=== PATIENT | male | born 1955 | race Caucasian/White ===

== ENCOUNTER 2023-09-15 14:45 | Outpatient (CLI) | payer OTHER, SELFPAY ==
[2023-09-15 18:47] LABS: Basophils Percent Auto 0.4 % (0.2-1.2); Eosinophils Absolute Auto 0.1 K/mm3 (0-0.3); Eosinophils Percent Auto 0.7 % (0-4.4); Hematocrit 50.3 % (42.0-52.0); Hemoglobin 16.2 g/dL (14.0-18.0); Immature Granulocyte Absolute 0.06 K/mm3 (0.00-0.031); Immature Granulocyte Percent A 0.6 % (0-0.5); Lymphocytes Absolute Auto 2.46 K/mm3 (0.9-3.2); Lymphocytes Percent Auto 25.1 % (18.3-44.2); Mean Corpuscular HGB Conc 32.2 g/dl (32-36); Mean Corpuscular Hemoglobin 30.9 pg (26-34); Mean Platelet Volume 9.9 fl (7.4-10.4); Monocytes Absolute Auto 0.9 K/mm3 (0.1-0.6); Monocytes Percent Auto 9.4 % (2.6-8.5); Neutrophils Absolute Auto 6.3 K/mm3 (1.3-6.7); Neutrophils Percent Auto 63.8 % (45.5-73.1); Platelet Count Result 339 k/mm3 (150-375); Red Blood Count 5.24 M/mm3 (4.6-6.20); Red Cell Distribution Width 12.1 % (11.5-14.5); White Blood Count 9.8 K/mm3 (4.5-10.0)
[2023-09-15 20:33] LABS: Alanine Aminotransferase 24 U/L (6-50); Albumin Level 4.7 g/dL (3.5-5.1); Alkaline Phosphatase 65 U/L (38-126); Anion Gap 9 mmol/L (8-16); Aspartate Amino Transferase 66 U/L (17-59); Bilirubin,Total 0.7 mg/dL (0.2-1.3); Blood Urea Nitrogen 19 mg/dL (9-20); Calcium 10.1 mg/dL (8.4-10.2); Carbon Dioxide 32 mmol/L (22-30); Chloride 97 mmol/L (98-107); Estimated Glomerular Filt Rate > 60; Glucose 107 mg/dL (65-110); Potassium 4.3 mmol/L (3.4-5.0); Sodium 138 mmol/L (137-145)
[2023-09-15 20:59] LABS: Prostate Specific Antigen 2.5 ng/mL (< OR = 4.0)
== END 2023-09-15 14:46 | disposition home or self-care (01) ==
LOC: ANHGOSHLAB 14:46
PROVIDERS: PCP Family Medicine; Visit Provider Family Medicine
DX: C80.1 Malignant (primary) neoplasm, unspecified (principal); F41.9 Anxiety disorder, unspecified; Z12.5 Encounter for screening for malignant neoplasm of prostate
CPT/HCPCS: 36415; 80053; 84153; 84443; 85025; G0103

== ENCOUNTER → 2023-09-20 10:14 | Outpatient (CLI) | payer OTHER, SELFPAY ==
--- NOTE | ~2023-09-20 | CT_ITS ---
CT of the Abdomen and Pelvis: Indication: Malignancy Technique: 2.5 mm axial scans were obtained through the abdomen and pelvis following intravenous adm inistration of 100 cc of Omnipaque 350. Dose reduction technique was used on this scan by utilizing a utomated exposure control and iterative reconstruction technique. The dose-length product (DLP) was 4 59.36 mGy-cm. COMPARISON: 09/28/2019 Findings: Scans through the lung bases are unremarkable. The liver, spleen, pancreas, adrenals and kidneys are within normal limits. Cholecystectomy clips are present. There are atherosclerotic calcifications of the aorta. No lymphadenopathy. No bowel obstruction or bowel wall thickening. There is no evidence to suggest acute appendicitis. Images through the pelvis were performed. Urinary bladder unremarkable. Prostate gland seminal vesicl es are unremarkable. Impression: No significant abnormalities seen. Reviewed, dictated and finalized at [facility]. LFURIZER TENDER Impression: No significant abnormalities seen.
== END ==
PROVIDERS: PCP Family Medicine; Visit Provider Family Medicine
DX: C80.1 Malignant (primary) neoplasm, unspecified (principal)
CPT/HCPCS: 74177; Q9967

== ENCOUNTER 2024-10-08 13:47 | Outpatient (CLI) | payer OTHER, SELFPAY ==
--- OUTSIDE RECORDS SUMMARY | 2024-10-08 14:35 | XMS_ITS | Referral Summary ---
Author Organization [facility] [employer] Address [address] [place] [address] Care Team Providers Care Adjunct History Instructor Name Role Phone Miguelina Gooden MD Primary Care Provider [phone] Source Comments [facility],non-owned Affiliates and Associated Physician Practices is amultiple site organization consisting of ambulatory clinics and hospital sitesin [place], [place], [place] and [place]. This disclosure is being madepursuant to the Care Everywhere program and may not contain all information available regarding this patient. Last updated 18.[facility] [employer] Allergies No known active allergies Medications * Be aware that medications may not be up to date on this document. Alwaysverify current medications with the patient. Medication Sig Dispensed Refills Start Date End Date Status hydroCHLOROthiazide (HYDRODIURIL) 25 MG tablet 90 tablet 3 08/22/2017 Active DULoxetine (CYMBALTA) 60 MG capsule Take 1 capsule by mouth once daily 09/14/2018 Active ticagrelor (BRILINTA) 90 MG tablet Take 90 mg by mouth 2 times daily 11/28/2018 Active simvastatin (ZOCOR) 20 MG tablet Take 20 mg by mouth at bedtime Active metoprolol tartrate IR (LOPRESSOR) 12.5 MG TABS tablet Take 12.5 mg by mouth 2 times daily Active isosorbide mononitrate CR 24hr (IMDUR) 60 MG tablet Take 60 mg by mouth once daily Active aspirin (ASPIRIN) 81 MG tablet Take 81 mg by mouth once daily Active Active Problems Problem Noted Date Diagnosed Date Atherosclerotic heart diseas e of [place] coronary artery without angina pectoris 11/10/2017 Overview (12/12/2017): Cath 11/03/2017: DEMETRICE to OM1 branch Plan to recath in 1 month to reeval LCX and RCA Major depressive disorder, single episode 2014 Old myocardial infarction 08/21/2015 Pure hypercholesterolemia 08/21/2015 Trigger thumb of right hand 07/06/2013 Pain of finger of right hand 05/31/2013 Essential (primary) hypertension 09/27/2012 Gastro-esophageal reflux disease without esophag itis 05/13/2009 Anxiety disorder 05/13/2009 Trigger finger of left thumb Immunizations Name Administration Dates Next Due DT (AGE 0-7) 08/20/1996 INFLUENZA VACCINE 07/21/2017 TDAP (7yrs+) 02/03/2016 Social History Tobacco Use Types Packs/Day Years Used Date Smoking Tobacco: Never Smokeless Tobacco: Never Tobacco Cessation:Counseling Given: No Alcohol Use Standard Drinks/Week Comments No 0 (1 standard drink = 0.6 oz pur e alcohol) Sex and Gender Information Value Date Recorded Sex Assigned at Not on file Gender Identity Not on file Sexual Orientation Not on file Last Filed Vital Signs Vital Sign Reading Time Taken Comments Blood Pressure 167/108 03/16/2019 10:04 AM CDT Pulse 80 03/16/2019 10:04 AM CDT Temperature 36.3 ??C (97.4 ??F) 03/16/2019 10:04 AM C DT Respiratory Rate 18 02/28/2019 12:50 PM CDT Oxygen Saturation 96% 03/16/2019 10:04 AM CDT Inhaled Oxygen Concentration - - Weight 83 kg (183 lb) 03/16/2019 10:04 AM CDT Height 162.6 cm (5' 4 ) 03/16/2019 10:04 AM CDT Body Mass Index 31.41 03/16/2019 10:04 AM CDT Plan of Treatment Not on file Procedures Procedure Name Priority Date/Time Associated Diagnosis Comments COMPREHENSIVE METABOLIC PANEL Routine 01/17/2016 11:30 AM CDT from Last 3 Months or Most Recently Relevant to Health Maintenance Results * COMPREHENSIVE METABOLIC PANEL (01/17/2016 11:30 AM CDT) Glucose 95 65 - 99 mg/dL [facility] ([facility]) Comment: ? Fasting reference interval BUN 19 7 - 25 mg/dL [facility] ([facility]) Creatinine 1.06 0.70 - 1.25 mg/dL [facility] ([facility]) Comment: For patients >49 years of age, the reference limit for Creatinine is approximately 13% higher for people identified as -[place] Citizen. eGFR non- 76 > OR = 60 mL/min/1 .73m2 [facility] ([facility]) eGFR 88 > OR = 60 mL/min/1 .73m2 [facility] ([facility]) BUN/Creatinine Ratio NOT APPLICABLE 6 - 22 (calc) [facility] ([facility]) Sodium 141 135 - 146 mmol/L [facility] ([facility]) Potassium 3.9 3.5 - 5.3 mmol/L [facility] ([facility]) Chloride 104 98 - 110 mmol/L [facility] ([facility]) CO2 27 19 - 30 mmol/L [facility] ([facility]) Calcium 9.3 8.6 - 10.3 mg/dL [facility] ([facility]) Protein Total 7.3 6.1 - 8.1 g/dL [facility] ([facility]) Albumin 4.2 3.6 - 5.1 g/dL [facility] ([facility]) Globulin 3.1 1.9 - 3.7 g/dL (calc) [facility] ([facility]) Albumin/Globulin Ratio 1.4 1.0 - 2.5 (calc) [facility] ([facility]) Bilirubin Total 0.3 0.2 - 1.2 mg/dL [facility] ([facility]) Alkaline Phosphatase 55 40 - 115 U/L [facility] ([facility]) AST 20 10 - 35 U/L [facility] ([facility]) ALT 27 9 - 46 U/L [facility] ([facility]) Comment: REPORT COMMENT: FASTING:YES Test Performed at: [facility] [address] [place], [place] ??[phone] BEA AGUIRRE DO,MPH 01/17/2016 11:3 0 AM CDT 01/17/2016 11:34 AM CDT Miguelina Gooden MD LAB - CHEMISTRY CINDI MALONE [facility] ([facility]) from Last 3 Months or Most Recently Relevant to Health Maintenance Advance Directives * Full Code (Latest Code Status on File) Date Activated Date Inactivated Comments 02/28/2019 8:10 AM 02/28/2019 4:20 PM Care Teams Adjunct History Instructor Relationship Specialty Start Date End Date Miguelina Gooden MD PCP - General 05/03/16
--- OUTSIDE RECORDS SUMMARY | 2024-10-08 14:35 | XMS_ITS | Patient Health Summary ---
Author Organization [facility] Address [address] [place] [address] Care Team Providers Care Title Lawyer Name Role Phone Miguelina Gooden MD Primary Care Provider [phone] [facility],non-owned Affiliates and Associated Physician Practices is amultiple site organization consisting of ambulatory clinics and hospital sitesin [place], [place], [place] and [place]. This disclosure is being madepursuant to the Care Everywhere program and may not contain all information available regarding this patient. Last updated 18.[facility] Allergies No known active allergies Medications * Be aware that medications may not be up to date on this document. Alwaysverify current medications with the patient. * hydroCHLOROthiazide (HYDRODIURIL) 25 MG tablet(Started 08/22/2017) 3 refills left * DULoxetine (CYMBALTA) 60 MG capsule(Started 09/14/2018) Take 1 capsule by mouth once daily * ticagrelor (BRILINTA) 90 MG tablet(Started 11/28/2018) Take 90 mg by mouth 2 times daily * simvastatin (ZOCOR) 20 MG tablet Take 20 mg by mouth at bedtime * metoprolol tartrate IR (LOPRESSOR) 12.5 MG TABS tablet Take 12.5 mg by mouth 2 times daily * isosorbide mononitrate CR 24hr (IMDUR) 60 MG tablet Take 60 mg by mouth once daily * aspirin (ASPIRIN) 81 MG tablet Take 81 mg by mouth once daily Active Problems Problem Noted Date Diagnosed Date Atherosclerotic heart diseas e of [place] coronary artery without angina pectoris 11/10/2017 Major depressive disorder, single episode 2014 Old myocardial infarction 08/21/2015 Pure hypercholesterolemia 08/21/2015 Trigger thumb of right hand 07/06/2013 Pain of finger of right hand 05/31/2013 Essential (primary) hypertension 09/27/2012 Gastro-esophageal reflux disease without esophag itis 05/13/2009 Anxiety disorder 05/13/2009 Trigger finger of left thumb Immunizations * DT (AGE 0-7)(Given 08/20/1996) * INFLUENZA VACCINE(Given 07/21/2017) * TDAP (7yrs+)(Given 02/03/2016) Social History Tobacco Use Types Packs/Day Years [...] Mass Index 31.41 03/16/2019 10:04 AM CDT Procedures * RELEASE TRIGGER FINGER (TENDON SHEATH)(Performed 02/28/2019) Performed for Snapping thumb syndrome of left hand * XR HAND LEFT 3VW OR MORE(Performed 01/22/2019) Performed for Trigger finger of left thumb * URINALYSIS W/MICROSCOPIC NO CULTURE(Performed 11/19/2016) * COMPREHENSIVE METABOLIC PANEL(Performed 01/17/2016) * LIPID PROFILE(Performed 01/17/2016) * LAB HISTORICAL RESULTS-ONBASE(Performed 07/02/2011) * LAB HISTORICAL RESULTS-ONBASE(Performed 07/02/2011) * CK BLOOD(Performed 06/30/2009) * BASIC METABOLIC PANEL (CALCIUM TOTAL)(Performed 07/08/2008) * LAB HISTORICAL RESULTS-ONBASE(Performed 07/05/2008) Results * XR HAND LEFT 3VW OR MORE (01/22/2019 1:03 PM CDT) Anatomical Region Laterality Modality Wrist / Hand Radiographic Kate ging 01/22/2019 1:18 PM CDT Impressions 01/22/2019 3:09 PM CDT IMPRESSION: No osseous or soft tissue abnormality is identified. Dictated by Segun Baca MD (radiology physician assistant). Dr. JOSUE Samayoa have personally reviewed and interpreted this examination/study. This report was electronically signed by JOSUE BELL ??on 01/22/2019 3:09 PM . Narrative 01/22/2019 3:09 PM CDT EXAMINATION: XR HAND LEFT 3VW OR MORE HISTORY: left thumb trigger finger COMPARISON: No prior study is available for comparison at the time of this dictation. FINDINGS: The osseous structures are intact and well aligned without acute fracture or dislocation. The joint spaces are preserved. Bone density and texture are normal. No soft tissue swelling is present. Procedure Note Josue Bell MD - 01/22/2019 EXAMINATION: XR HAND LEFT 3VW OR MORE HISTORY: left thumb trigger finger COMPARISON: No prior study is available for comparison at the time ofthis dictation. FINDINGS: The osseous structures are intact and well aligned without acutefracture or dislocation. The joint spaces are preserved. Bone density and texture are normal. No soft tissue swelling is present. IMPRESSION: No osseous or soft tissue abnormality is identified. Dictated by Segun Baca MD (radiology physician assistant). Dr. JOSUE Samayoa have personally reviewed and interpreted this examination/study. This report was electronically signed by JOSUE BELL on 01/22/2019 3:09 PM . Deborah Akins MD DIAGNOSTIC IMAGING O RDERABLES * (ABNORMAL) URINALYSIS W/MICROSCOPIC NO CULTURE (11/19/2016 1:06 PM MAILROOM MANAGER) Color UA YELLOW [facility]LLOW [facility]) Appearance CLEAR CLEAR [facility] ([facility]) Specific [place] UA 1.023 1.001 - 1.035 [facility] ([facility]) pH Urine 5.5 5.0 - 8.0 [facility] ([facility]) Glucose UA NEGATIVE NEGATIVE [facility] ([facility]) Bilirubin UA NEGATIVE NEGATIVE [facility] ([facility]) Ketone UA NEGATIVE NEGATIVE [facility] ([facility]) Blood UA 2+(A) NEGATIVE [facility] ([facility]) Protein UA NEGATIVE NEGATIVE [facility] ([facility]) Nitrite UA NEGATIVE NEGATIVE [facility] ([facility]) Leukocyte Esterase NEGATIVE NEGATIVE [facility] ([facility]) WBC Urine NONE SEEN < OR = 5 /HPF [facility] ([facility]) RBC Urine 3-10(A) < OR = 2 /HPF [facility] ([facility]) Squamous Epithelial Cells UA NONE SEEN < OR = 5 /HPF [facility] ([facility]) Bacteria UA NONE SEEN NONE SEEN /HPF [facility] ([facility]) Hyaline Casts UA NONE SEEN NONE SEEN /LPF [facility] ([facility]) Comment: REPORT COMMENT: FASTING:NO Test Performed at: [facility] [address] [place], [place] ??[phone] BEA AGUIRRE DO,MPH Urine specimen (specimen) URINE SPECIMEN OBTAINED BY CLEAN CATCH PROCEDURE / Unknown 11/19/2016 1:06 PM MAILROOM MANAGER 11/19/2016 1:06 PM MAILROOM MANAGER Miguelina Gooden MD LAB - URINALYSIS ORD ERABLES [facility] ([facility]) * COMPREHENSIVE METABOLIC PANEL (01/17/2016 11:30 AM CDT) Glucose 95 65 - 99 mg/dL [facility] ([facility]) Comment: ? Fasting reference interval BUN 19 7 - 25 mg/dL [facility] ([facility]) Creatinine 1.06 0.70 - 1.25 mg/dL [facility] ([facility]) Comment: For patients >49 years of age, the reference limit for Creatinine is approximately 13% higher for people identified as -[place]. eGFR non- 76 > OR = 60 mL/min/1 .73m2 [facility] ([facility]) eGFR 88 > OR = 60 mL/min/1 .73m2 [facility] ([facility]) BUN/Creatinine Ratio NOT APPLICABLE 6 - 22 (calc) [facility] ([facility]) Sodium 141 135 - 146 mmol/L [facility] ([facility]) Potassium 3.9 3.5 - 5.3 mmol/L [facility] ([facility]) Chloride 104 98 - 110 mmol/L [facility] ([facility]) CO2 27 19 - 30 mmol/L [facility] ([facility]) Calcium 9.3 8.6 - 10.3 mg/dL [facility] ([facility]) Protein Total 7.3 6.1 - 8.1 g/dL [facility] ([facility]) Albumin 4.2 3.6 - 5.1 g/dL [facility] ([facility]) Globulin 3.1 1.9 - 3.7 g/dL (calc) [facility] ([facility]) Albumin/Globulin Ratio 1.4 1.0 - 2.5 (calc) [facility] ([facility]) Bilirubin Total 0.3 0.2 - 1.2 mg/dL [facility] ([facility]) Alkaline Phosphatase 55 40 - 115 U/L [facility] ([facility]) AST 20 10 - 35 U/L [facility] ([facility]) ALT 27 9 - 46 U/L [facility] ([facility]) Comment: REPORT COMMENT: FASTING:YES Test Performed at: [facility] [place], [place] ??[phone] BEA AGUIRRE DO,MPH 01/17/2016 11:3 0 AM CDT 01/17/2016 11:34 AM CDT Miguelina Gooden MD LAB - CHEMISTRY CINDI MALONE [facility] ([facility]) * (ABNORMAL) LIPID PROFILE (01/17/2016 11:30 AM CDT) Cholesterol Total 149 125 - 200 mg/dL [facility] ([facility]) Comment: Test Performed at: [facility] [address] [place], [place] ??[phone] BEA AGUIRRE DO,MPH HDL 35(L) > OR = 40 mg/dL [facility] ([facility]) Triglycerides 118 <150 mg/dL [facility] ([facility]) LDL Calculated 90 <130 mg/dL (calc) [facility] ([facility]) Comment: Desirable range <100 mg/dL for patients with CHD or diabetes and <70 mg/dL for diabetic patients with known heart disease. Chol/HDL Ratio 4.3 < OR = 5.0 (calc) [facility] ([facility]) Non HDL Cholesterol 114 mg/dL (calc) [facility] ([facility]) Comment: Target for non-HDL cholesterol is 30 mg/dL higher than LDL cholesterol target. 01/17/2016 11:3 0 AM CDT 01/17/2016 11:34 AM CDT Miguelina Gooden MD LAB - CHEMISTRY CINDI MALONE Performing Organization Address [facility] de Phone Number [facility] ([facility]) * LAB HISTORICAL RESULTS-ONBASE (07/02/2011) Only the most recent of3 resultswithin the time period is included. 07/02/2011 Historical Provider LAB - CHEMISTRY O BENJAMIN Performing Organization Address [facility] Co de Phone Number [facility] * CK BLOOD (06/30/2009 4:07 PM CDT) CK Total 107 44 - 196 U/L [facility] ([facility]) Comment: Test Performed at: [facility] [address] ??[phone] BEA AGUIRRE DO,MPH Serum 06/30/2009 4:07 PM CDT 06/30/2009 4:09 PM CDT Narrative [facility] ([facility]) - 07/01/2009 5:00 AM CDT Preferred Lab:->[facility] Miguelina Gooden MD LAB - CHEMISTRY CINDI MALONE Performing Organization Address [facility] de Phone Number [facility] ([facility]) * BASIC METABOLIC PANEL (CALCIUM TOTAL) (07/08/2008) Pathologist [facility] Glucose POCT TNP mg/dL [facility] ([facility]) Comment: * ?? TEST NOT PERFORMED. ?* * ?? AN ELECTRONIC TEST REQUEST ?? * * ?? WAS TRANSMITTED TO [employer] ? * * ?? DIAGNOSTICS, BUT NO SPECIMEN * * ?? WAS RECEIVED. ?* REPORT COMMENT: Preferred Lab:->[facility] Test Performed at: [facility] [address] ??[phone] BEA ROWLAND MD Venous blood specimen (specimen) (Arm, Left) 07/08/2008 07/08/2008 3:04 PM CDT Narrative [facility] ([facility]) - 07/23/2008 1:00 PM MAILROOM MANAGER Preferred Lab:->[facility] Miguelina Gooden MD LAB - CHEMISTRY CINDI MALONE [facility] ([facility]) Care Teams Title Lawyer Relationship Specialty Start Date End Date Miguelina Gooden MD PCP - General 05/03/16
--- OUTSIDE RECORDS SUMMARY | 2024-10-08 14:35 | XMS_ITS | Encounter Summary ---
Author Organization [facility] Address [address] [place] [address] Care Team Providers Care Block Sorter Name Role Phone Miguelina Gooden MD Primary Care Provider [phone] Encounter Details Date Type Department Care Team (Late Contact [facility]) Description 01/30/2019 Telephone [facility] [address] [place] [address] Denys Smith MD [phone] [phone] Social History Tobacco Use Types Packs/Day Years Used Date Smoking Tobacco: Never Smokeless Tobacco: Never Alcohol Use Standard Drinks/Week Comments No 0 (1 standard drink = 0.6 oz pur e alcohol) Sex and Gender Information Value Date Recorded Sex Assigned at Not on file Gender Identity Not on file Sexual Orientation Not on file documented as of this encounter Miscellaneous Notes * Telephone Encounter - Dulce Bautista - 01/30/2019 10:38 AM CDT Per Maria Elena @ [employer] for cpt code 10180, call reference # [id number]. documented in this encounter Plan of Treatment Not on file documented as of this encounter Visit Diagnoses Not on filedocumented in this encounter Care Teams Block Sorter Relationship Specialty Start Date End Date Miguelina Gooden MD PCP - General 05/03/16 documented as of this encounter
--- OUTSIDE RECORDS SUMMARY | 2024-10-08 14:35 | XMS_ITS | Referral Summary ---
Author Organization [facility] [address] [facility] [address] Address [address] [place] [address] Care Team Providers Care Subway Guard Name Role Phone Gonzalo Werner MD Primary Care Provider [phone] Encounters Date Type Department Care Team Description 07/19/2024 1:30 PM DISTANCE LEARNING UNIT LEADER Office Visit [facility] Cardiology [address] [facility] [address] [place] [address] Soco Osorio NP Coronary artery disease involving [place] coronary artery of [place] heart without angina pectoris; Hyperlipidemia LDL goal <70; Lipid screening; Essential hypertension from Last 3 Months Allergies No known active allergies Medications aspirin 81 mg tablet take 1 tablet by oral route every day 0 0 12/17/2016 Active cholecalciferol (VITAMIN D3) 1,000 unit capsule take 1 by oral route every day 0 08/15/[address] (CYMBALTA) 60 mg capsule Take 1 capsule (60 mg total) by mouth daily 0 09/14/2018 Active hydroCHLOROthiaz zheng (MICROZIDE) 12.5 mg capsule Take 1 capsule (12.5 mg total) by mouth every morning 30 capsule 11 04/08/2020 Active omeprazole (PriLOSEC) 20 mg capsule 06/02/2021 Active tamsulosin (FLOMAX) 0.4 mg extended release capsule Take 1 capsule (0.4 mg total) by mouth daily 12/28/2023 Active nitroglycerin (NITROSTAT) 0.[address] 1 TABLET UNDER THE TONGUE EVERY 5 MINUTES NEEDED FOR CHEST PAIN. 25 tablet 11 02/08/2024 Active isosorbide mononitrate ER (IMDUR) 60 mg 24 hr tablet TAKE 1 TABLET BY MOUTH EVERY DAY IN THE MORNING 90 tablet 2 03/26/2024 Active Brilinta 60 mg tabletIndication s:Coronary artery disease of [place] artery of [place] heart with stable angina pectoris (HCC) TAKE 1 TABLET BY MOUTH 2 TIMES A DAY. 180 tablet 3 04/09/2024 Active lisinopriL (PRINIVIL,ZESTRI L) 10 mg tablet TAKE 1 TABLET BY MOUTH EVERY DAY 90 tablet 1 05/09/2024 Active metoprolol tartrate (LOPRESSOR) 25 mg immediate release tabletIndication s:Essential hypertension,Cor onary artery disease of [place] artery of [place] heart with stable angina pectoris (HCC) TAKE 1 TABLET BY MOUTH TWICE A DAY 180 tablet 1 06/11/2024 Active simvastatin (ZOCOR) 40 mg tabletIndication s:Coronary artery disease involving [place] coronary artery of [place] heart without angina pectoris Take 1 tablet (40 mg total) by mouth nightly 90 tablet 3 07/19/2024 07/19/20 25 Active Active Problems Problem Noted Date Diagnosed Date Tiredness 07/02/2021 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) 10/07/2017 Hyperlipidemia LDL goal <70 10/07/2017 Essential hypertension 10/07/2017 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 stable angina pectoris 10/07/2017 Hyperlipidemia 12/17/2016 Overview (02/04/2017): Hyperlipidemia LDL goal <70 Indigestion 12/17/2016 Overview (02/04/2017): Dyspepsia Social History Tobacco Use Types Packs/Day Years Used Date Smoking Tobacco: Never Smokeless Tobacco: Never Tobacco Cessation:Counseling Given: Not Answered Alcohol Use Standard Drinks/Week Comments No 0 (1 standard drink = 0.6 oz pur e alcohol) Sex and Gender Information Value Date Recorded Sex Assigned at Not on file Legal Sex Male 1:58 AM DISTANCE LEARNING UNIT LEADER Gender Identity Not on file Sexual Orientation Not on file Last Filed Vital Signs Vital Sign Reading Time Taken Comments Blood Pressure 124/78 07/19/2024 1:16 PM DISTANCE LEARNING UNIT LEADER Pulse 79 07/19/2024 1:16 PM DISTANCE LEARNING UNIT LEADER Temperature - - Respiratory Rate - - Oxygen Saturation 96% 07/19/2024 1:16 PM DISTANCE LEARNING UNIT LEADER Inhaled Oxygen Concentration - - Weight 76.2 kg (168 lb) 07/19/2024 1:16 PM DISTANCE LEARNING UNIT LEADER Height 162.6 cm (5' 4 ) 07/19/2024 1:16 PM DISTANCE LEARNING UNIT LEADER Body Mass Index 28.84 07/19/2024 1:16 PM DISTANCE LEARNING UNIT LEADER Plan of Treatment Not on file Procedures Procedure Name Priority Date/Time Associated Diagnosis Comments POCT LIPID PANEL Routine 07/19/2024 1:22 PM DISTANCE LEARNING UNIT LEADER Lipid screening from Last 3 Months Results * POCT lipid panel (07/19/2024 1:22 PM DISTANCE LEARNING UNIT LEADER) Cholesterol, POC 155 mg/dL HDL, POC 46 mg/dL Triglycerides, POC 81 mg/dL LDL Cholesterol POC 93 mg/dL Chol/HDL Ratio, POC 2.0 Non-HDL Cholesterol, POC 109 mg/dL Cholesterol Total, POC 155 mg/dL Capillary blood 07/19/2024 1 :22 PM DISTANCE LEARNING UNIT LEADER Soco Osorio NP POINT OF CARE TEST ORDERA BLES Final Result from Last 3 Months Insurance [facility] Care Teams Subway Guard Relationship Specialty Start Date End Date Gonzalo Werner MD PCP - General Family Medicine 04/07/21
--- OUTSIDE RECORDS SUMMARY | 2024-10-08 14:35 | XMS_ITS | Clinical Summary ---
Author Organization [facility] Address [address] [place] [address] Care Team Providers Care Product Engineer Name Role Phone Miguelina Gooden MD Primary Care Provider [phone] Source Comments [facility],non-owned Affiliates and Associated Physician Practices is amultiple site organization consisting of ambulatory clinics and hospital sitesin [place], [place], [place] and [place]. This disclosure is being madepursuant to the Care Everywhere program and may not contain all information available regarding this patient. Last updated 18.[facility] Allergies No known active allergies Medications * [...] Atherosclerotic heart diseas e of [place] coronary artery without angina pectoris 11/10/2017 Overview [...] 08/20/1996 INFLUENZA VACCINE 07/21/2017 TDAP (7yrs+) 02/03/2016 Family History Medical History Relation Name Comments None Known Father Status: d Heart Disease Mother Status: Deceas ed Relation Name Status Comments Father Mother Social History Tobacco Use Types Packs/Day Years [...] 03/16/2019 10:04 AM CDT Plan of Treatment Health Maintenance Due Date Last Done Comments COLOGUARD (AGES 45-75) - COL ON CA SCREENING 1955 COLON MONITORING 1955 COLONOSCOPY - COLON CA SCREENING 1955 CT COLONOGRAPHY - COLON CA SCREENING 1955 Colorectal Cancer Screening 1955 FIT - COLON CA SCREENING 1955 FLEX SIG - COLON CA SCREENING 1955 HEPATITIS C SCREENING 12/21/1973 PNEUMOCOCCAL VACCINE 50+ (1 of 1 - PCV) 12/25/2005 ZOSTER VACCINE (1 of 2) 12/25/2005 SCREENING FOR DIABETES 01/22/2019 6, 07/08/2008 COVID-19 VACCINE ( - 2023-2 5 season) 2024 INFLUENZA VACCINE (#1) 2024 07/21/2017 DEPRESSION SCREENING 09/12/2024 DTAP/TDAP/TD VACCINES (3 - T d or Tdap) 02/02/2026 02/03/2016, 08/20/1996 Respiratory Syncytial Virus (RSV) Vaccine Pt: or over 60 yrs (1 - 1-dose 75+ series) 12/25/2030 HEPATITIS B VACCINE Aged Out No longe r eligible based on patient's age to complete this topic HIB VACCINE Aged Out No longer eligi ble based on patient's age to complete this topic HPV VACCINE Aged Out No longer eligi ble based on patient's age to complete this topic MENINGOCOCCAL (Group B) VACCINE Aged Out No longer eligible b ased on patient's age to complete this topic MENINGOCOCCAL VACCINE Aged Out No marika aroldo eligible based on patient's age to complete this topic Procedures Procedure Name Priority Date/Time Associated Diagnosis Comments COMPREHENSIVE METABOLIC PANEL Routine 01/17/2016 11:30 AM CDT from Last 3 Months or Most Recently Relevant to Health Maintenance Results * COMPREHENSIVE METABOLIC PANEL (01/17/2016 11:30 AM CDT) Glucose 95 65 - 99 mg/dL [facility] Comment: ? Fasting reference interval BUN 19 7 - 25 mg/dL [facility] Creatinine 1.06 0.70 - 1.25 mg/dL [facility] Comment: For patients >49 years of age, the reference limit for Creatinine is approximately 13% higher for people identified as -[place]. eGFR non- 76 > OR = 60 mL/min/1 .73m2 [facility]) eGFR 88 > OR = 60 mL/min/1 .73m2 [facility] BUN/Creatinine Ratio NOT APPLICABLE 6 - 22 (calc) [facility] Sodium 141 135 - 146 mmol/L [facility] Potassium 3.9 3.5 - 5.3 mmol/L [facility] Chloride 104 98 - 110 mmol/L [facility] CO2 27 19 - 30 mmol/L [facility] Calcium 9.3 8.6 - 10.3 mg/dL [facility] Protein Total 7.3 6.1 - 8.1 g/dL [facility] Albumin 4.2 3.6 - 5.1 g/dL [facility] Globulin 3.1 1.9 - 3.7 g/dL (calc) [facility] Albumin/Globulin Ratio 1.4 1.0 - 2.5 (calc) [facility] Bilirubin Total 0.3 0.2 - 1.2 mg/dL [facility] Alkaline Phosphatase 55 40 - 115 U/L [facility] AST 20 10 - 35 U/L [facility] ALT 27 9 - 46 U/L [facility] Comment: REPORT COMMENT: FASTING:YES Test Performed at: [facility] [address] ??[id number] BEA AGUIRRE DO,MPH 01/17/2016 11:3 0 AM CDT 01/17/2016 11:34 AM CDT Miguelina Gooden MD LAB - CHEMISTRY CINDI Cottrell Organization Address City/State/ZIP Co de Phone Number [facility]) from Last 3 Months or Most Recently Relevant to Health Maintenance Advance Directives * Full Code (Latest Code Status on File) Date Activated Date Inactivated Comments 02/28/2019 8:10 AM 02/28/2019 4:20 PM Care Teams Product Engineer Relationship Specialty Start Date End Date Miguelina Gooden MD PCP - General 05/03/16
--- OUTSIDE RECORDS SUMMARY | 2024-10-08 14:35 | XMS_ITS | Clinical Summary ---
Author Organization [facility] [address] [facility] [address] Address [address] [place] [address] Care Team Providers Care Steam Hand Name Role Phone Gonzalo Werner MD Primary Care Provider [phone] Allergies No known active allergies Medications aspirin [...] 60 mg tabletIndication s:Coronary artery disease of [place] artery of [place] heart with stable angina pectoris (HCC) TAKE 1 TABLET BY MOUTH 2 TIMES A DAY. 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 (HCC) TAKE 1 TABLET BY MOUTH TWICE A DAY 180 tablet 1 06/11/2024 Active simvastatin (ZOCOR) 40 mg tabletIndication s:Coronary artery disease involving [place] coronary artery of [place] heart without angina pectoris Take 1 tablet (40 mg total) by mouth nightly 90 tablet 3 07/19/2024 07/19/20 25 Active Active Problems Problem Noted Date Diagnosed Date Tiredness 07/02/2021 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) 10/07/2017 Hyperlipidemia LDL goal <70 10/07/2017 Essential hypertension 10/07/2017 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 10/07/2017 Hyperlipidemia 12/17/2016 Overview (02/04/2017): Hyperlipidemia LDL goal <70 Indigestion 12/17/2016 Overview (02/04/2017): Dyspepsia Encounters Date Type Department Care Team Description 07/19/2024 1:30 PM CHARGE POSTER Office Visit [facility] Cardiology [address] [place] [address] Soco Osorio NP Coronary artery disease involving [place] coronary artery of [place] heart without angina pectoris; Hyperlipidemia LDL goal <70; Lipid screening; Essential hypertension from Last 3 Months Surgical History Surgery Date Site/Laterality Comments OTHER SURGICAL HISTORY ccholecystectomy CHOLECYSTECTOMY December 06, 1995 Medical History Medical History Date Comments Chronic coronary artery disease Coronary Artery Disease Hypertension Hypertension Hypercholesterolemia High choles terol Gastroesophageal reflux disease GERD Hx Other Medical aanxiety/depres simran Adiposity obesity Anxiety 1993 Depression 2004 Heart disease February 03, 2009 Family History Medical History Relation Name Comments Coronary artery disease Brother 2 Whit nary Artery Bypass Graft; Arthritis Father Len Mejia Coronary artery disease Father Len Mejia C oronary Artery Bypass Graft; Heart attack Father Len Mejia Myocardial I nfarction; Hypertension Father Len Mejia Stroke Father Len Mejia Arthritis Mother Bren Mejia Coronary artery disease Mother Bren Mejia Co ronary Artery Bypass Graft; Heart attack Mother Bren Mejia Myocardial In farction; Hypertension Mother Bren Mejia Relation Name Status Comments Brother 1 Alive Brother 2 Father Len Mejia Alive Mother Bren Mejia Alive Social History Tobacco Use Types Packs/Day Years Used Date Smoking Tobacco: Never Smokeless Tobacco: Never Tobacco Cessation:Counseling Given: Not Answered Alcohol Use Standard Drinks/Week Comments No 0 (1 standard drink = 0.6 oz pur e alcohol) Sex and Gender Information Value Date Recorded Sex Assigned at Not on file Legal Sex Male 1:58 AM CHARGE POSTER Gender Identity Not on file Sexual Orientation Not on file Obstetrics History Last Filed Vital Signs Vital Sign Reading Time Taken Comments Blood Pressure 124/78 07/19/2024 1:16 PM CHARGE POSTER Pulse 79 07/19/2024 1:16 PM CHARGE POSTER Temperature - - Respiratory Rate - - Oxygen Saturation 96% 07/19/2024 1:16 PM CHARGE POSTER Inhaled Oxygen Concentration - - Weight 76.2 kg (168 lb) 07/19/2024 1:16 PM CHARGE POSTER Height 162.6 cm (5' 4 ) 07/19/2024 1:16 PM CHARGE POSTER Body Mass Index 28.84 07/19/2024 1:16 PM CHARGE POSTER Plan of Treatment Health Maintenance Due Date Last Done Comments Colon Cancer Screening-Colonoscopy 1955 Depression Screening 1955 Fall Risk Assessment 1955 Hepatitis C Screening 1955 Prostate Cancer Screening-PSA 1955 Pneumococcal vaccine 65+ (1 of 2 - PCV) 12/25/1961 Hepatitis B Screening 12/25/1973 Zoster Vaccine (1 of 2) 12/25/2005 Well Visit 65+ 12/25/2020 Covid-19 Vaccine (3 - 2023- season) 2024, 11/11/2020 Influenza Vaccine (#1) 2024 06/02/2021, 2016 DTaP/Tdap/Td Vaccine (3 - Td or Tdap) 02/02/2026, 08/20/1996 Procedures Procedure Name Priority Date/Time Associated Diagnosis Comments POCT LIPID PANEL Routine 07/19/2024 1:22 PM CHARGE POSTER Lipid screening from Last 3 Months Results * POCT lipid panel (07/19/2024 1:22 PM CHARGE POSTER) Cholesterol, POC 155 mg/dL HDL, POC 46 mg/dL Triglycerides, POC 81 mg/dL LDL Cholesterol POC 93 mg/dL Chol/HDL Ratio, POC 2.0 Non-HDL Cholesterol, POC 109 mg/dL Cholesterol Total, POC 155 mg/dL Capillary blood 07/19/2024 1 :22 PM CHARGE POSTER Soco Osorio NP POINT OF CARE TEST ORDERA BLES Final Result from Last 3 Months Insurance [facility] Member Subscriber Plan / Payer (Ef fective 2020-Present) Name:Rene Mejia Relation to Subscriber:Self Name:Rene Mejia Payer ID:[id number] (NAIC) Type:MEDICARE RISK OTHER Address: [place] [id number] [facility] Member Subscriber Plan / Payer (Ef fective 2020-Present) Name:Rene Mejia Relation to Subscriber:Self Name:Rene Mejia Payer ID:[id number] (NAIC) Type:MEDICARE RISK OTHER Address: [place] [id number] Care Teams Steam Hand Relationship Specialty Start Date End Date Gonzalo Werner MD PCP - General Family Medicine 04/07/21
[2024-10-08 16:29] LABS: Alanine Aminotransferase 19 U/L (6-50); Albumin Level 4.1 g/dL (3.5-5.1); Alkaline Phosphatase 55 U/L (38-126); Anion Gap 10 mmol/L (4-12); Aspartate Amino Transferase 55 U/L (17-59); Bilirubin,Total 0.4 mg/dL (0.2-1.3); Blood Urea Nitrogen 12 mg/dL (9-20); Calcium 8.8 mg/dL (8.4-10.2); Carbon Dioxide 32 mmol/L (22-30); Chloride 99 mmol/L (98-107); Cholesterol 114 mg/dL (0-200); Estimated Glomerular Filt Rate > 60; Glucose 93 mg/dL (65-110); HDL Direct 36 mg/dL; Potassium 3.9 mmol/L (3.4-5.0); Sodium 141 mmol/L (137-145); Triglycerides 89 mg/dL (<150)
[2024-10-08 16:40] LABS: LDL Cholesterol Direct 52 mg/dL
== END 2024-10-08 13:48 | disposition home or self-care (01) ==
LOC: ANHGOSHLAB 13:48
PROVIDERS: PCP Family Medicine; Visit Provider Family Medicine
DX: I25.10 Atherosclerotic heart disease of native coronary artery without angina pectoris (principal); I10 Essential (primary) hypertension
CPT/HCPCS: 36415; 80053; 80061